=== PATIENT | male | born 1975 | race Caucasian/White ===

== ENCOUNTER 2019-08-05 15:12 | Outpatient (CLI) | payer OTHER, SELFPAY ==
--- NOTE | 2019-08-05 15:16 | ECG_ITS ---
Measurements Intervals [place] Rate: 65 P: 69 MI: 138 QRS: 21 QRSD: 100 T: 25 QT: 367 QTc: 382 Interpretive Statements SINUS RHYTHM NORMAL ECG Electronically Signed On 08-05-2019 16:54:12 [employer] by Blake Sy D.O.
== END 2019-08-05 15:13 | disposition home or self-care (01) ==
LOC: ANHSURGERY 15:16
PROVIDERS: PCP Family Medicine; Visit Provider Orthopaedic Surgery
DX: Z87.891 Personal history of nicotine dependence (principal)
CPT/HCPCS: 93005

== ENCOUNTER 2019-08-13 02:50 | Day surgery (SDC) | payer OTHER, SELFPAY ==
[2019-08-03 10:35] VITALS: BMI 24.3
[2019-08-13 08:40] VITALS: BP 118/76; PULSE 71; RESP 18; TEMP 36.9; O2SAT 100
[2019-08-13] MEDS: LACTATED RINGERS 1,000 ML 30 ML IV CONT ×2 (08:40→10:30)
--- NOTE | 2019-08-13 08:45 | WPDHPUPDATE1 ---
History and Physical Update Update Date/Time: 08/13/19 08:45 History and Physical has been reviewed, including an updated exam of the patient. There are NO changes in the patient's condition. Risks, benefits, and alternatives have been discussed and questions answered. Patient agrees to proceed with procedure.
--- NOTE | 2019-08-13 09:09 | WPDANESEPPF ---
Anes - Initial Pre Proc Eval Procedure: Operation Date: 08/13/19 10:00 Proposed Procedures p Left Knee Arthroscopic Removal of Loose Body - Shashi Gordillo MD Date/Time: 08/13/19 09:09 Surgeon: Shashi Gordillo MD Pre Op Diagnosis: Left Knee Loose Body Patient Data Age: 44 Gender: M Height: 5 ft 7 in Weight: 71.6 kg Last Vital Signs Temp 36.9 C 08/13/19 08:40 Pulse 71 08/13/19 08:40 Resp 18 08/13/19 08:40 BP 118/76 08/13/19 08:40 Pulse Ox 100 08/13/19 08:40 Allergies Allergy/AdvReac Type Severity Reaction Status Date / Time ciprofloxacin Allergy Unknown NUMBNESS/TI Verified 08/13/19 08:52 NGLING Home Medications Medication Instructions Recorded Confirmed Type omega 9-pgh-gvr-fish oil [Fish Oil] 1 cap PO DAILY 08/03/19 08/03/19 History Patient hx anesthesia problems: none Family hx anesthesia problems: none [facility] Past Medical History Medical History Loose body of left knee Family History Family History Father Diabetes mellitus Mother Family history of malignant neoplasm of breast in first degree relative Social History Social History Smoking status: Never smoker Alcohol intake: current Anes - Eval Final PreProcedure Day of Procedure 08/13/19 09:09 Patient weight: normal Heart: regular rate and rhythm Lungs: clear to auscultation Airway: Mallampati scale class 1 Neurological: alert and oriented Last oral intake: >/= 8 hours ASA classification: I Emergent: no Anesthetic plan: proceed Anesthesia type and monitoring: general LMA and standard monitoring Informed Consent: The patient's anesthetic plan and its attendant risks and benefits were discussed with the patient/family/POA. Questions were solicited and answers provided to the satisfaction of the patient/family/POA.
[2019-08-13] MEDS: ceFAZolin 2 GM/D5W 50 ML 2 GM/50 ML BAG IVPB (09:25)
[2019-08-13] MEDS: BUPIVACAINE/EPINEPHRINE 0.5% 30 ML VIAL INFILTRATE (09:54)
[2019-08-13] MEDS: KETOROLAC 30 MG/ML VIAL (*BKC) IV PUSH (10:20)
--- NOTE | 2019-08-13 10:29 | PM.PROC ---
Procedure Note - Detailed Date of procedure: 08/13/19 Pre-op diagnosis: Left Knee Loose Body Post-op diagnosis: other (1.Loose body 2. medial meniscus tear.) Procedure performed: 1. Arthroscopic partial medial meniscectomy. 2. Arthroscopic loose body excision. (12 x10 mm) Description of procedure: Loose body identified in the lateral gutter. Removed with the grasper. Mild medial meniscus tear at body, treated with partial meniscectomy. ACL reconstruction intact. Anesthesia: GETA Surgeon: Shashi Gordillo MD Estimated blood loss (mL): 5 Complications: None Condition: stable Disposition: PACU Findings: Brief History: The patient complained of knee pain, swelling and mechanical symptoms despite conservative treatment. MRI confirmed the presence of a meniscus tear. Operative Findings: Procedure Details: The patient was identified and the surgical site confirmed and signed in the preoperative holding area. Antibiotics were started per protocol. She was brought to the operative room and transferred to the OR table. A general anesthetic was administered. Supine position with the operative lower extremity position in the leg johnson after placement of a well padded tourniquet. The leg support was lowered and the contralateral limb was supported with a soft bolster. The knee was prepped and draped in the usual sterile fashion. A time-out was performed. The portal sites were marked and infiltrated with 0.5% Marcaine 20 mL. The limb was exsanguinated and the tourniquet inflated to 300 mL Hg. Standard inferolateral and inferomedial portals were established. Inflow was obtained with the saline pump. The camera was introduced. Diagnostic inspection of the joint was accomplished. The meniscus was debrided with the arthroscopic shaver and punches until stable. The arthroscopic instruments were removed. The tourniquet released and wounds closed with subcutaneous 3-0 Monocryl absorbable suture. Steri strips and a sterile dressing were applied. A light elastic wrap was placed. The patient was extubated and brought to the recovery room in stable condition.
[2019-08-13 10:30] VITALS: BP 110/74; PULSE 78; RESP 12; TEMP 36.1; O2SAT 100
[2019-08-13 10:45] VITALS: BP 110/78; PULSE 76; RESP 15; O2SAT 100
[2019-08-13 11:00] VITALS: BP 111/82; PULSE 76; RESP 17; O2SAT 96
[2019-08-13 11:04] VITALS: BP 117/72; PULSE 67; RESP 16
[2019-08-13 11:34] VITALS: BP 126/92; PULSE 99; RESP 14
== END 2019-08-13 12:00 | disposition home or self-care (01) ==
PROVIDERS: PCP Family Medicine; Visit Provider Orthopaedic Surgery
PROC: (CPT 29870; principal; 2019-08-13 10:00)
DX: S83.242A Other tear of medial meniscus, current injury, left knee, initial encounter (principal); X58.XXXA Exposure to other specified factors, initial encounter
CPT/HCPCS: 29881; J0690; J1100; J1885; J2250; J2270; J2405; J2704; J7120